=== PATIENT | female | born 1950 | race Caucasian/White ===

== ENCOUNTER → 2018-07-25 | Outpatient (CLI) | payer MEDICARE ==
[~2018-07-25] MED LIST: CAFF200T69 PO; CHOL100060 PO; CYAN50TA3 PO; DOXY25TA36 PO; KELP PO; OMEG-11 PO; SELE50TA16 PO; TUM500 PO; ZINC50TA2 PO; [UNRECOGNIZED DRUG - CODE] PO; [UNRECOGNIZED DRUG - OTHER] PO
--- NOTE | 2018-07-25 16:08 | RADIOLOGY IMAGING REPORT ---
FACILITY: [facility] PATIENT NAME: SUNIL FALK : [id number] MR: [id number] V: [id number] EXAM DATE: [id number] ORDERING PHYSICIAN: ALISE KUO TECHNOLOGIST: Nona Saxena PROCEDURE:BILATERAL DIGITAL SCREENING MAMMOGRAM WITH CAD ASSISTED INTERPRETATION & 3D TOMOSYNTHESIS COMPARISON:Prior mammograms 06/17/17, 06/15/16. INDICATIONS:SCREENING FINDINGS: There is scattered fibroglandular tissue. There is a partially obscured approximate 7mm ovoid asymmetry in the anterior Left breast at the nipple line seen on CC view which is stable when compared to priors and is favored to represent a benign cyst given stability. No suspicious mass, microcalcification or architectural distortion. No significant change. IMPRESSION: BIRADS 1: Negative. Normal exam. Annual mammographic screening recommended. Dictated by: Yousif Ghosh on 07/25/2018 at 15:42 Transcribed by: SHERRY on 07/25/2018 at 16:04 Approved by: Yousif Ghosh on 07/25/2018 at 16:07 [facility]
== END ==
LOC: MAMO 00:29
PROVIDERS: ATTEND Family Medicine
DX: Z12.31 Encounter for screening mammogram for malignant neoplasm of breast (principal)
CPT/HCPCS: 77063; 77067